=== PATIENT | female | born 1960 | race African-American/Black ===

== ENCOUNTER 2020-11-21 18:44 | Emergency (ER) | payer OTHER ==
[~2020-11-21] VITALS: Ht 160 cm; Wt 88.6 kg
--- NOTE | 2020-11-21 19:06 | PHYS DOC ---
General Adult EDM: Chief Complaint: MECHANICAL FALL HPI: HPI: 59-year-old -Mong[place] female presents the ED brought in by EMS with complaints of left arm pain after accidentally falling inside her home while carrying a fan. Patient denied hitting her head or lose consciousness. Is not on any anticoagulants. Was not under the influence of any alcohol or drugs. Reports no primary care physician, takes no routine prescribed medications, only daily vitamins. Denies any prior injury to left upper extremity. Review of Systems: Review of Systems: Constitutional: Denies fever or chills. [] Eyes: Denies change in visual acuity. [] HENT: Denies nasal congestion or sore throat. [] Respiratory: Denies cough or shortness of breath. [] Cardiovascular: Denies chest pain or edema. [] GI: Denies abdominal pain, nausea, vomiting, bloody stools or diarrhea. [] : Denies dysuria or urinary or bowel retention or incontinence Musculoskeletal: Denies back pain or saddle anesthesia Integument: Denies rash or diaphoresis Neurologic: Denies headache, neck pain, focal weakness or sensory changes. [] Endocrine: Denies polyuria or polydipsia. [] Lymphatic: Denies swollen glands. [] Psychiatric: Denies depression or anxiety. [] Heart Score: C/O Chest Pain: No Risk Factors: Risk Factors: DM, Current or recent (<one month) smoker, HTN, HLP, family history of CAD, obesity. Risk Scores: Score 0 - 3: 2.5% MACE over next 6 weeks - Discharge Home Score 4 - 6: 20.3% MACE over next 6 weeks - Admit for Clinical Observation Score 7 - 10: 72.7% MACE over next 6 weeks - Early Invasive Strategies Allergies: Allergies: Allergies Coded Allergies Type Severity Reaction Last Updated Verified No Known Drug Allergies 11/21/20 No Physical Exam: PE: Constitutional: Well developed, well nourished, no acute distress, non-toxic appearance, hypertensive HENT: Normocephalic, atraumatic, no signs of head trauma Eyes: EOMI, conjunctiva normal, no discharge. Neck: Normal range of motion, supple, Cardiovascular: S1/2 present, regular rhythm Lungs & Thorax: Speaking in full sentences, bilateral equal chest rise, no tachypnea or increased work of breathing Abdomen: soft, no tenderness, Skin: Warm, dry, no erythema, no rash. [] Back: No midline step-offs or tenderness, no CVA tenderness. [] Extremities: Equal radial pulses bilaterally, ttp over left mid-humerus, no reproducible focal pain over left shoulder or left elbow although pain worsens with left shoulder movement, rounded left anterior shoulder Neurologic: Alert and oriented X 3, normal motor function, normal sensory function, no focal deficits noted. [] Psychologic: Affect normal, judgement normal, mood normal. [] Nexus C-spine criteria are negative: There is no post midline tenderness, the patient is not intoxicated, there is a normal level of alertness, there are no focal neurologic deficits and there are no distracting injuries. Therefore the c-collar has been removed. EKG: EKG: [] Radiology/Procedures: Radiology/Procedures: IMAGING REPORT Signed PATIENT: JOHN CORRALES ACCOUNT: [id number] : 1960 LOCATION: ER AGE: 59 SEX: F EXAM STATUS: PRE ER ORD. PHYSICIAN: KELSIE BARRERA DO REASON: left arm pain PROCEDURE: SHOULDER 2+V LEFT 2 views left shoulder, 2 views left humerus and 2 views left elbow dated 11/21/2020. No comparison available. Clinical data indication: Left arm pain. FINDINGS: 2 views left shoulder show anterior dislocation of the humeral head relative to the glenoid. No apparent fracture. There is mild degenerative change of the AC joint. 2 views of left humerus show normal bony alignment. No displaced fracture. No periostitis or bone destruction. 2 views left elbow show normal bony alignment. No displaced fracture. No apparent fat pad elevation to suggest joint effusion. IMPRESSION: 1. Anterior dislocation of the glenohumeral joint. 2. No apparent abnormality of the distal humerus or elbow. Electronically signed by: Iker Leyva MD (11/21/2020 7:22 PM) [facility] [place] DICTATED and SIGNED BY: IKER LEYVA MD DATE: 11/21/20 [id number] 0 Indication: Joint dislocation Consent: Consent was obtained. Procedure: The pre-reduction exam showed distal perfusion and neurologic function to be normal.. The patient was placed in the appropriate position. Anesthesia/pain control well-controlled with ketamine 1 chico per KG and 2 mg of IV Versed. Reduction of the left anterior shoulder was performed by myself) with traction/countertraction. Post reduction films were obtained and revealed satisfactory reduction. A post-reduction exam revealed distal perfusion and neurologic function to be normal. The affected area was immobilized with a left shoulder immobilizer. Patient with normal axillary nerve sensation and equal radial pulses bilaterally before and after procedure The patient tolerated the procedure well. Complications: none. IMAGING REPORT Signed PATIENT: JOHN CORRALES ACCOUNT: [id number] : 1960 LOCATION: ER AGE: 59 SEX: F EXAM STATUS: REG ER ORD. PHYSICIAN: KELSIE BARRERA DO REASON: s/p reduction PROCEDURE: SHOULDER 2+V LEFT XR SHOULDER_LEFT 2+ VIEWS History: Reason: s/p reduction / Spl. Instructions: / History: Technique: 3 views left shoulder. Comparison: November 21, 2020 Findings: Interval reduction left glenohumeral joint dislocation. No acute fracture. Impression: 1. Interval reduction left glenohumeral dislocation. Electronically signed by: Matthew Cuellar DO (11/21/2020 11:06 PM) [facility] DICTATED and SIGNED BY: MATTHEW CUELLAR DO DATE: 11/21/20 [id number] 0 Course & Med Decision Making: Course & Med Decision Making Pertinent Labs and Imaging studies reviewed. (See chart for details) Concern for accidental anterior left shoulder dislocation with successful reduction. Informed consent for reduction obtained with 2 sons in ED room witnessing consent/agreement plan, (patient consents to his/her/their knowledge and involvement in pts' medical care. Patient also with uncontrolled hypertension, no renal insufficiency on labs. Patient's son understands she needs ortho and pcp followup within one week. At time of discharge patient denies any active pain-analgesia rx offerred.Will discharge home with strict ED return precautions were given for neurologic deficits, skin color changes, severe pain or repeat injury. Encouraged urgent outpatient follow-up with PMD and orthopedic surgery. Life-threatening processes were considered but are low suspicion at this time, given history, physical exam and ED workup. Pt was educated on all prescription medications and adverse effects. All patient's questions were answered and pt was stable at time of discharge. Life/limb-threatening differential includes but is not limited to, trauma (fracture, dislocation, laceration, compartment syndrome, tendon or ligament injury), neurovascular injury or deficitcva/tia, infection (osteomyelitis, abscess, cellulitis, septic arthritis, necrotizing fasciitis), deep vein throm bosis, renal/cardiac/liver disease, medication adverse effect, lymphedema/anasarca, vascular insufficiency or malignancy, I spoken with the patient and her caregivers. I explained the patient's condition, diagnoses and treatment plan based on the information available to me at this time. I have answered the patient and her caregiver's questions and addressed any concerns. The patient and her caregivers have a good understanding of patient's diagnosis, condition and treatment plan as can be expected at this point. Vital signs have been stable. Patient's condition is stable and appropriate for discharge from the emergency department. Patient will pursue further outpatient evaluation with primary care physician or other designated or consulting physician as outlined in the discharge instructions. The patient and/or caregivers are agreeable to this plan of care and follow-up instructions have been explained in detail. The patient and/or caregivers have received these instructions in written form and have expressed an understanding of the discharge instructions. The patient and/or caregivers are aware that any significant change of condition or worsening of symptoms should prompt immediate return to this or the closest emergency department or call to 1. Anthony Disclaimer: Anthony Disclaimer: This electronic medical record was generated, in whole or in part, using a voice recognition dictation system. Departure Departure Impression: Primary Impression: Anterior dislocation of left shoulder Additional Impression: Uncontrolled hypertension Disposition: HOME / SELF CARE / HOMELESS Condition: STABLE Referrals: IKER DE LUNA MD Follow-up with your primary care physician in 24 to 48 hours OR FOLLOW UP WITH FAMILY MEDICINE: [address] [facility], [address] [place] [address] Patient Instructions: Hypertension, Sedation, Moderate, Adult, Shoulder Dislocation Additional Instructions: FOLLOW UP WITH ORTHOPEDICS: FOR DEFINITIVE MANAGEMENT WITHIN 1 WEEK Orthopaedic Sports Medicine Orthopaedic [facility] [address] [place] [address] OR [facility] [address] [place] [address] EMERGENCY DEPARTMENT GENERAL DISCHARGE INSTRUCTIONS Thank you for coming to [facility] Emergency Department (ED) today and trusting us with you care. We trust that you had a positive experience in our Emergency Department. If you wish to speak to the department management, you may call the Director at [phone]. YOUR FOLLOW UP INSTRUCTIONS ARE FOLLOWS: 1. Do you have a private Doctor? If you do not have a private doctor, please ask for a resource list of physicians or clinics that may be able to assist you with follow up care. 2. The Emergency Physicain has interpreted your x-rays. The X-Ray specialist will also review them. If there is a change in the findings, you will be notified in 48 hours when at all possible. 3. A lab test or culture has been done, your results will be reviewed and you will be notified if you need a change in treatment. ADDITIONAL INSTRUCTIONS AND INFORMATION: 1. Your care today has been supervised by a physician who is specially trained in emergency care. Many problems require more than one evaluation for a complete diagnosis and treatment. We recommend that you schedule your follow up appointment as recommended to ensure complete treatment of you illness or injury. If you are unable to obtain follow up care and continue to have a problem, or if your condition worsens, we recommend that you return to the ED. 2. We are not able to safely determine your condition over the phone nor are we able to give sound medical advice over the phone. For these safety reasons, if you call for medical advice we will ask you to come to the ED for further evaluation. 3. If you have any questions regarding these discharge instructions please call the ED at [phone]. SAFETY INFORMATION: In the interest of safety, wellness, and injury prevention; we encourage you to wear your sealbelt, if you smoke; quite smoking, and we encourage family to use a protective helmet for bicycling and other sporting events that present an increased risk for head injury. IF YOUR SYMPTOMS WORSEN OR NEW SYMPTOMS DEVELOP, OR YOU HAVE CONCERNS ABOUT YOUR CONDITION; OR IF YOUR CONDITION WORSENS WHILE YOU ARE WAITING FOR YOUR FOLLOW UP APPOIN TMENT; EITHER CONTACT YOUR PRIMARY CARE DOCTOR, THE PHYSICIAN WHOSE NAME AND NUMBER YOU WERE GIVEN, OR RETURN TO THE ED IMMEDIATELY. Scripts Ibuprofen (IBUPROFEN) 600 Mg Tablet 600 MG PO PRN Q6HRS PRN for PAIN, #20 TAB take with food or milk Prov: KELSIE BARRERA DO 11/22/20 KELSIE BARRERA DO Nov 21, 2020 19:05
--- NOTE | 2020-11-21 19:24 | RAD ---
2 views left shoulder, 2 views left humerus and 2 views left elbow dated 11/21/2020. No comparison available. Clinical data indication: Left arm pain. FINDINGS: 2 views left shoulder show anterior dislocation of the humeral head relative to the glenoid. No appar ent fracture. There is mild degenerative change of the AC joint. 2 views of left humerus show normal bony alignment. No displaced fracture. No periostitis or bone grey truction. 2 views left elbow show normal bony alignment. No displaced fracture. No apparent fat pad elevation t o suggest joint effusion. IMPRESSION: 1. Anterior dislocation of the glenohumeral joint. 2. No apparent abnormality of the distal humerus or elbow. Electronically signed by: Iker Leyva MD (11/21/2020 7:22 PM) [facility]
[2020-11-21 19:48] LABS: CALCIUM 9.3 mg/dL (8.5-10.1); GFR 56.6; POTASSIUM 4.7 mmol/L (3.5-5.1)
[2020-11-21] MEDS ORDERED: KETAMINE HCL 500 MG/10 ML VIAL. IV ONE (20:00)
[2020-11-21] MEDS ORDERED: MIDAZOLAM HCL/PF 5 MG/5 ML VIAL. NS ONE (20:00)
[2020-11-21] MEDS ORDERED: MIDAZOLAM HCL/PF 5 MG/5 ML VIAL. IV ONE (21:30)
[2020-11-21 21:31] VITALS: BP 227/108
[2020-11-21] MEDS ORDERED: ONDANSETRON PF 4 MG/2 ML VIAL. ONE (22:12)
[2020-11-21] MEDS ORDERED: hydrALAZINE 20 MG/ML VIAL. IVP ONE (22:30)
[2020-11-21] MEDS ORDERED: HYDROmorphone 2 MG/ML VIAL IVP ONE (22:30)
[2020-11-21] MEDS ORDERED: ONDANSETRON PF 4 MG/2 ML VIAL. IVP ONE (22:30)
--- NOTE | 2020-11-21 23:09 | RAD ---
XR SHOULDER_LEFT 2+ VIEWS History: Reason: s/p reduction / Spl. Instructions: / History: Technique: 3 views left shoulder. Comparison: November 21, 2020 Findings: Interval reduction left glenohumeral joint dislocation. No acute fracture. Impression: 1. Interval reduction left glenohumeral dislocation. Electronically signed by: Matthew Cuellar DO (11/21/2020 11:06 PM) [facility]
[2020-11-22] MEDS ORDERED: IBUP-1007 PO (00:14)
[2020-11-22 00:15] VITALS: BP 170/81
== END 2020-11-22 00:25 | disposition home or self-care (01) ==
LOC: ER 18:44
DX: S43.005A Unspecified dislocation of left shoulder joint, initial encounter (principal); W18.39XA Other fall on same level, initial encounter; Y93.89 Activity, other specified; Y92.098 Other place in other non-institutional residence as the place of occurrence of the external cause; Y99.8 Other external cause status
CPT/HCPCS: 23650; 36415; 73030; 73060; 73070; 80048; 94760; 96374; 96375; 99285; J0360; J2250; J2405; J3490

== ENCOUNTER → 2021-01-26 | Outpatient (CLI) | payer OTHER ==
[~2021-01-26] MED LIST: GADOTERATE 5 MMOL/10ML VIAL. INT ART ONE; IBUP-1007 PO; IOHEXOL 300 MG/ML 50 ML VIAL. INT ART ONE; LIDOCAINE 1% Multi-Dose 20 ML VIAL. ID ONE
--- NOTE | 2021-01-26 17:37 | KCIC ---
DG ARTHROGRAM SHOULDER LEFT 01/26/2021 1:21 PM Comparison: None. Indication: Pain. Technique: Informed verbal and written consent was obtained after the explanation of risks, benefits, and possib le complications. Prior to the procedure, final verification was performed. Utilizing sterile technique, a left arthrogram was performed under fluoroscopy. 1% Lidocaine was admi nistered as a local anesthetic. A 22-gauge spinal needle was inserted into the joint capsule under fl uoroscopic guidance. 9 cc mixture of gadolinium and nonionic contrast was injected into the joint spa ce. The patient tolerated the procedure well, and there were no immediate complications. The patient was transported to MRI with appropriate pre-imaging and post-discharge instructions. Fluoroscopy time: 8 seconds Number of images: 1 Impression: Successful left arthrogram under fluoroscopic guidance. Electronically signed by: Melinda Martinez MD (01/26/2021 5:35 PM) [id number]
--- NOTE | 2021-01-26 18:04 | KCIC ---
Exam Date: 01/26/2021 2:05 PM MRI LEFT UPPER EXTREMITY JOINT WITH IV CONTRAST Indication: Reason: LEFT SHOULDER PAIN / Spl. Instructions: / History: Pt fell, dislocation October d. Pain and LROM.. MR ARTHROGRAM LEFT SHOULDER WITH CONTRAST TECHNIQUE: Multiplanar MR imaging of the shoulder was performed following the intra-articular injecti on of both iodinated contrast and dilute gadolinium contrast. The fluorscopic-guided shoulder injec tion procedure is reported separately. COMPARISON: Radiographs from November 21, 2020 FINDINGS: The anterior inferior labrum appears blunted on axial imaging which could be posttraumatic. Labrum a ppears normal on the ABER view. No discrete labral tear or detachment is identified. No Hill-Sachs or Bankart lesion is seen. Long head of the biceps tendon is intact. There is a focal partial-thickness articular sided tear of the mid fibers of the supraspinatus tendon approximately 4 mm proximal to its insertion, measuring 6 mm on coronal oblique imaging and 10 mm on sagittal oblique imaging, with up to 13 mm of longitudinal interstitial extension of the tear. Eduar tional areas of articular sided fraying of the tendon are noted. No full-thickness rotator cuff tendon tear is identified. The infraspinatus, teres minor and subscap ularis tendons are intact. Rotator cuff musculature demonstrates normal signal and bulk. Mild degenerative changes are seen at the AC joint. There is an intact type II acromion. Small flui d is seen in the subacromial/subdeltoid bursa consistent with mild bursitis. No contrast extension i s seen into the bursa to suggest full-thickness rotator cuff tendon tear. Mild degenerative changes are seen at the glenohumeral joint. Bone marrow demonstrates benign signal on all sequences without acute fracture. IMPRESSION: Blunted abnormal morphology of the anterior-inferior labrum could be posttraumatic, though no discret e labral tear or detachment is identified. No Hill-Sachs or Bankart lesion is seen. Partial thickness articular sided tearing and fraying of the supraspinatus tendon as described. No f ull-thickness rotator cuff tendon tear is identified. Mild subacromial/subdeltoid bursitis. Electronically signed by: Olivier Lazaro MD (01/26/2021 6:02 PM) [facility]
== END | disposition home or self-care (01) ==
LOC: KCIC 13:13
PROVIDERS: ATTEND Physician Assistant
DX: M25.312 Other instability, left shoulder (principal); M75.102 Unspecified rotator cuff tear or rupture of left shoulder, not specified as traumatic; M75.52 Bursitis of left shoulder; Z79.899 Other long term (current) drug therapy
CPT/HCPCS: 23350; 73222; 77002; A9575; J3490; Q9967